=== PATIENT | female | born 1960 | race Caucasian/White ===

== ENCOUNTER 2022-02-12 17:46 | Outpatient (CLI) | payer BC, OTHER, SELFPAY | END 2022-02-12 17:47 | disposition home or self-care (01) | LOC: LAB 17:53 | PROVIDERS: PCP Family Medicine; Visit Provider Family Medicine | DX: E87.6 Hypokalemia (principal); Z79.899 Other long term (current) drug therapy | CPT/HCPCS: 80053; 80061; 84132; 84443; 85025 ==

== ENCOUNTER → 2022-03-17 13:13 | Outpatient (BNVA) | payer BC, SELFPAY | PROVIDERS: PCP Family Medicine; Visit Provider Family Medicine | DX: E87.6 Hypokalemia (principal) | CPT/HCPCS: 84132 ==